=== PATIENT | male | born 1965 | race Caucasian/White ===

== ENCOUNTER 2023-06-05 06:23 | Inpatient (IN) | payer OTHER ==
[2023-06-05] VITALS (10 sets, daily range): BP systolic 147–173; BP diastolic 94–120
[~2023-06-05] VITALS: Ht 182.9 cm; Wt 86.6 kg
[2023-06-05] MEDS ORDERED: METF500 PO (07:01)
[2023-06-05] MEDS ORDERED: Prinivil10 MG PO (07:01)
[2023-06-05] MEDS ORDERED: NOVOLOG FL100 UNIT/3 SC (07:01)
[2023-06-05] MEDS ORDERED: ATOR40TA PO (07:01)
[2023-06-05] MEDS ORDERED: HUMULIN N100 UNIT/1 (07:02)
[2023-06-05 07:03] LABS: BASOPHILS ABSOLUTE AUTO 0.05 K/mm3 (0.00-0.23); BASOPHILS PERCENT AUTO 1 % (0-2); EOSINOPHILS ABSOLUTE AUTO 0.02 K/mm3 (0.00-0.68); EOSINOPHILS PERCENT AUTO 0 % (0-6); Hematocrit 46.5 % (37.0-53.0); IMMATURE GRAN ABSOLUTE AUTO 0.01 K/mm3 (0.00-0.10); IMMATURE GRAN PERCENT AUTO 0 % (0-1); LYMPHOCYTES ABSOLUTE AUTO 1.39 K/mm3 (0.84-5.20); LYMPHOCYTES PERCENT AUTO 23 % (21-46); MONOCYTES ABSOLUTE AUTO 0.32 K/mm3 (0.16-1.47); MONOCYTES PERCENT AUTO 5 % (4-13); Mean Corpuscular HGB 32.2 pg (26.0-34.0); Mean Corpuscular HGB Conc 34.4 g/dL (31.5-36.5); Mean Corpuscular Volume 94 fL (80-100); Mean Platelet Volume 9.1 fL (9.1-12.4); NEUTROPHILS ABSOLUTE AUTO 4.14 K/mm3 (1.96-9.15); NEUTROPHILS PERCENT AUTO 70 % (41-73); Platelet Count 235 K/mm3 (150-400); RDW Coefficient Variation 13.1 % (11.7-14.2); RDW Standard Deviation 44.8 fL (35.1-46.3); Red Blood Cell Count 4.97 M/mm3 (4.30-5.90); White Blood Cell Count 5.93 K/mm3 (4.00-11.30)
[2023-06-05 07:25] LABS: Albumin, Blood 3.8 g/dL (3.4-5.0); Albumin/Globulin Ratio 0.8 (0.8-1.8); Beta-hydroxybutyrate 10.4 mg/dL (0.2-2.8); Bun/Creatinine Ratio 13.6 (12.0-20.0); Calcium, Blood 9.5 mg/dL (8.5-10.1); Creatinine, Blood 0.81 mg/dL (0.60-1.20); Globulin, Blood 4.7 g/dL (2.2-4.0); Potassium, Blood 3.9 mmol/L (3.5-5.5); Total Protein, Blood 8.5 g/dL (6.4-8.2)
[2023-06-05 09:22] LABS: Source, Urine Clean Catch
[2023-06-05 09:27] LABS: Appearance, Urine Clear (Clear); Bilirubin, Urine Neg (Neg); Blood, Urine 2+ (Neg); Color, Urine Yellow (P-Yellow); Glucose Qualitative, Urine 3+ (Neg); Ketones, Urine 4+ (Neg); Leukocyte Esterase, Urine Neg (Neg); Nitrite, Urine Neg (Neg); Protein, Urine 2+ (Neg); Urobilinogen, Urine NORM (Normal); pH, Urine 6.5 (5.0-8.0)
[2023-06-05 09:34] LABS: Amorphous Light (0-Heavy); Bacteria Few /hpf; Mucus Light (0-Heavy); Squamous Epithelial Cells Rare /hpf (Few); White Blood Cells, Urine 0-2 /hpf (0-5)
[2023-06-05] MEDS ORDERED: SALONPAS PATCH1 EACH TOP (14:05)
[2023-06-05] MEDS ORDERED: LOTREXONE1.5 MG PO (14:14)
--- NOTE | 2023-06-05 16:30 | NUR ---
ADMISSION NOTE AND TRANSFER TO ICU: Pt arrived to PCU 10 from ER at 1340. Actively withdrawing from alcohol with CIWA >20. Medicated with librium and ativan per orders. Pt. and brother at bedside. Pt oriented to family and self, follow some directions. Severe hallucinations, tremors, diapheresis and agitiation. Pt was medicated multiple times, as ordered, for active withdrawl. Pt CIWA continued to remain greater than 20. Order for transfer to ICU for better withdrawl management. Pt transfered to ICU 15 via bed. remained at bedside. Report given and care transfered.
--- NOTE | 2023-06-05 18:42 | NUR ---
END OF SHIFT PT BROUGHT TO ICU-15 BY BED FROM PCU @ APPROX 1600. PT ALERT UPON ARRIVAL, NOT ANSWERING Qs OR FOLLOWING INSTRUCTIONS. PT CONFUSED, AGITATED, SWINGING ARMS, & UNABLE TO BE REDIRECTED. SECURITY CALLED FOR ASSISTANCE TO GET PT TRANSFERED FROM PCU BED TO ICU BED. PT EVENTUALLY CRAWLED/SLID SELF FROM PCU BED TO ICU BED W/ STAFF ASSISTANCE. LOCKED TOUGH CUFF WRIST RESTRAINTS PLACED TO BILAT WRISTS D/T PT INTERFERING W/ CARE, PULLING AT TELEMETRY LINES, THRASHING IN BED, & CONFUSEDLY SWINGING ARMS & KICKING LEGS. PT TREMULOUS & DIAPHORETIC. VSS. CBG STABLE. PRECEDEX GTT INITIATED PER ORDERS. PT REPORTING PT NORMALLY DRINKS "12-24 BEERS A DAY, THAT I KNOW OF." PT NORMALLY A&O X4, INDEPENDENT AMBULATION @ BASELINE. PT BEDREST AT THIS TIME. 2L NC APPLIED D/T PT DESAT 88% ON RA WHILE SLEEPING/SNORING. MONITOR SHOWING NSR, HR 60s-80s.
[2023-06-06] VITALS (39 sets, daily range): BP systolic 89–168; BP diastolic 51–138
[2023-06-06 04:24] LABS: BASOPHILS ABSOLUTE AUTO 0.02 K/mm3 (0.00-0.23); BASOPHILS PERCENT AUTO 0 % (0-2); EOSINOPHILS ABSOLUTE AUTO 0.08 K/mm3 (0.00-0.68); EOSINOPHILS PERCENT AUTO 2 % (0-6); Hematocrit 38.5 % (37.0-53.0); Hemoglobin 13.1 g/dL (13.5-17.5); IMMATURE GRAN ABSOLUTE AUTO 0.01 K/mm3 (0.00-0.10); IMMATURE GRAN PERCENT AUTO 0 % (0-1); LYMPHOCYTES ABSOLUTE AUTO 0.85 K/mm3 (0.84-5.20); LYMPHOCYTES PERCENT AUTO 17 % (21-46); MONOCYTES ABSOLUTE AUTO 0.24 K/mm3 (0.16-1.47); MONOCYTES PERCENT AUTO 5 % (4-13); Mean Corpuscular Volume 94 fL (80-100); Mean Platelet Volume 9.6 fL (9.1-12.4); NEUTROPHILS ABSOLUTE AUTO 3.71 K/mm3 (1.96-9.15); NEUTROPHILS PERCENT AUTO 76 % (41-73); Platelet Count 172 K/mm3 (150-400); RDW Standard Deviation 44.6 fL (35.1-46.3); White Blood Cell Count 4.91 K/mm3 (4.00-11.30)
[2023-06-06 04:26] LABS: Bun/Creatinine Ratio 27.5 (12.0-20.0); Calcium, Blood 8.2 mg/dL (8.5-10.1); Creatinine, Blood 0.69 mg/dL (0.60-1.20); Magnesium, Blood 1.8 mg/dL (1.6-2.4); Phosphorus, Blood 2.7 mg/dL (2.5-4.9); Potassium, Blood 3.7 mmol/L (3.5-5.5)
--- NOTE | 2023-06-06 18:21 | NUR ---
SHIFT SUMMARY PATIENT SLEPT OFF AND ON T/O SHIFT. PRECEDEX LOWERED TO 0.8MCG/KG/HR AND NS @ 75ML/HR. CIWA MAX 11 THIS SHIFT. PATIENT IS MORE ALERT AND ORIENTED TO PLACE AND DAY. REDIRECTABLE AND FOLLOWS COMMANDS WITH INTERMITTENT CONFUSION. PATIENT REQUIRED STRAIGHT CATH X 1 TODAY WITH 950ML OUT. NO BM THIS SHIFT. 3LPM VIA NC REMAINS IN PLACE. NOW ABLE TO TAKE PO FLUIDS. NO OTHER CHANGES THIS SHIFT.
[2023-06-07] VITALS (21 sets, daily range): BP systolic 107–171; BP diastolic 69–115
[2023-06-07 04:12] LABS: Bun/Creatinine Ratio 26.4 (12.0-20.0); Calcium, Blood 7.6 mg/dL (8.5-10.1); Creatinine, Blood 0.72 mg/dL (0.60-1.20); Magnesium, Blood 1.8 mg/dL (1.6-2.4); Phosphorus, Blood 2.9 mg/dL (2.5-4.9); Potassium, Blood 3.4 mmol/L (3.5-5.5)
--- NOTE | 2023-06-07 07:42 | NUR ---
CARE OF PT ASSUMED AT 0700. PRECEDEX AT 1MCG FOR ACUTE ETOH W/D. PT SLEEPING, AWAKENS TO LOUD VOICE, PT UNABLE TO ANSWER QUESTIONS; MUMBLES. STRONG COUGH. PT'S AT BEDSIDE; UPDATED. PRECEDEX DECREASED TO 0.7MCG. PLAN; DECREASE SEDATION TOLERATED. MOBILIZE TOLERATED, BLADDER SCAN IF PT UNABLE TO VOID HE HAS BEEN RETAINING URINE, INCREASE PO INTAKE VALENCIA.
--- NOTE | 2023-06-07 08:22 | NUR ---
DR ROBLERO IN TO SEE PT, DR ROBLERO UPDATED PT'S . OKAY TO PLACE INDWELLING OTT CATH IF PT CONTINUES TO HAVE RETENTION ISSUES. PPN TO BE ORDERED BY DR ROBLERO IF PT CONTINUES TO STAY NPO FOR ASPIRATION RISK.
--- NOTE | 2023-06-07 09:23 | NUR ---
PT AWAKE FOR BEDBATH BUT VERY DROWSY, ABLE TO FOLLOW SIMPLE COMMANDS. PT RESTLESS AND PICKING AT LINES. PT UNABLE TO STATE NAME AND ASKED WHERE HE WAS AT.PT HALLUCINATING, ATTEMPTING TO PULL WALLET FROM "JEANS". CIWA 18 FOR MILD AGITATION, TREMORS, CONFUSION, HALLUCINATIONS. ATIVAN 2MG GIVEN. PRECEDEX DECREASED TO 0.5MCG.
[2023-06-07 10:37] LABS: Source, Urine Foley catheter
[2023-06-07 10:42] LABS: Appearance, Urine Hazy (Clear); Bilirubin, Urine Neg (Neg); Blood, Urine 5+ (Neg); Color, Urine Amber (P-Yellow); Glucose Qualitative, Urine 2+ (Neg); Ketones, Urine 4+ (Neg); Leukocyte Esterase, Urine 1+ (Neg); Nitrite, Urine Neg (Neg); Protein, Urine 2+ (Neg); Urobilinogen, Urine 1+ (Normal)
--- NOTE | 2023-06-07 10:48 | NUR ---
PRECEDEX DOWN TO 0.5MCG. PT AWAKENS TO VOICE BUT REMAINS DROWSY FALLING QUICKLY BACK TO SLEEP. BLADDER SCAN SHOWED 814CC. PT ATTEMPTED TO BUT WAS UNABLE TO VOID. ORDERS FOR INDWELLING CATH OBTAINED.URO JET LIDOCAINE USED FOR COMFORT. 16F OTT CATH PLACED W/O DIFFICULTY, PT VALENCIA WELL. APPROX 800CC ORANGE U/O AFTER CATH PLACED. UA SENT PER PROTOCOL.
[2023-06-07 11:44] LABS: Mucus Heavy (0-Heavy); Red Blood Cells, Urine 50-100 /hpf (0-2)
[2023-06-07 11:46] LABS: Squamous Epithelial Cells Not Seen /hpf (Few)
[2023-06-07 11:47] LABS: Bacteria Few /hpf
--- NOTE | 2023-06-07 12:36 | NUR ---
PT WOKE UP AND ASKED TO USE THE BATHROOM FOR BM. 2 PERSON SBA TO COMMODE. PT ONLY ABLE TO PASS GAS. PT MORE ALERT, ABLE TO STATE YEAR W 2 ATTEMPTS. ABLE TO STATE HE WAS IN [facility] AND WHY. PRECEDEX PLACED ON STANDBY. LIBRIUM GIVEN FOR ANXIETY AND MILD TREMORS.
[2023-06-07] MEDS ORDERED: MELO7.5 PO (15:26)
[2023-06-07] MEDS ORDERED: ESCI10 PO (15:26)
--- NOTE | 2023-06-07 16:08 | NUR ---
PT HAS BEEN OFF PRECEDEX SINCE NOON. PT WIDE AWAKE AND ALERT. PT ABLE TO STATE HIS MEDICATIONS AND DOSES. PT REQUESTS HIS ANTIDEPRESSANT TO BE STARTED. PT ALSO STATES THAT HIS NICOTINE WITHDRAW FEELS GREATER THAN HIS ETOH SYMPTOMS AT THE PRESENT. DR ROBLERO CALLED; NICOTINE GUM ADDED WELL CELEXA. DIET ORDERED; PT HAS TOLERATED JELLO. PT NOW SBA ASSIST W WALKER TO TOILET; LOOSE BM'S. CIWA 2 AT PRESENT. PT'S REMAINS AT BEDSIDE.
[2023-06-08] VITALS (10 sets, daily range): BP systolic 144–163; BP diastolic 69–90
--- NOTE | 2023-06-08 00:36 | NUR ---
UPDATE THIS RN ROUNDED ON PT 1950 TO PERFORM INITAL ASSESSMENTS WELL ADMINISTER PM MEDICATION. BED RAILSx3 WERE UP, NON-SLIP SOCKS WERE ON, CALL LIGHT IN REACH, AND BED AT LOWEST POSITION. PT DENIED ANY A NEED TO USE RESTROOM OR ANYTHING ELSE. ALSO THERE IS NO DRAWING IN HAND SCHEDULED FOR THIS SHIFT. ~2046 THIS PM, THIS RN WAS IN ANOTHER ROOM WHEN LOUD CRASH WAS HEARD COMING FROM PT'S ROOM. NURSING STAFF AND REMOTE RUBY ON RAILS DEVELOPER SHASHI KATE TO ROOM TO FIND PT ON THE GROUND BEWTEEN THE TOILET AND BED WITH FECES NOTED ALL OVER GROUND. PT WAS ALERT AND WHEN ASKED WHAT HAPPEND PT STATED "I STARTED SHITTING THE BED AND HAD TO HAUL ASS TO THE TOILET! I FELL AND HIT MY HEAD TO ON THE SIDE OF THE TRASH CAN." FULL HEAD TO TOE ASSESSMENT PERFORMED ON PT WITH NO APPARENT INJURY NOTED. PT DENIED ANY PAIN, DIZZINESS, SOB, HEADACHE, OR UNILATERAL WEAKNESS/SENSATION LOSS. NO ABRASIONS, BLOOD, HEMATOMA, OR WOUNDS NOTED. EYES EQUAL AND REACTIVE TO LIGHT. PT CLEANED UP BY NURSING STAFF AND TRANSFFERED TO BED VIA GAITBELT AND FWW. FULL SET OF VITAL PERFROMED WITH STABLE RESULTS. DR. MUÑOZ NOTIFIED OF EVENT ~2052 WITH ORDERS TO CONTINUE TO MONITOR PT FOR ANY CHANGES IN CONDITION. NURSING SUP. WAS ALSO NOTIFIED ~2049 OF FALL. PT REDUCATED ON NEED TO USE CALL LIGHT WHEN NEEDING TO USE BATHROOM. BED RAILSx3 UP WITH BEDSIDE TABLE INFRONT OF SIDE WITH DOWN RAIL. NON-SLIP SOCKS REMAIN ON, BED IN LOWEST POSITION, CALL LIGHT IN REACH, AND BED ALARM ON. CURTAIN PULLED BACK SO STAFF MAY CLOSER OBSERVE PATIENT. NO NEW ORDERS AT THIS TIME.
[2023-06-08 04:09] LABS: Bun/Creatinine Ratio 12.6 (12.0-20.0); Calcium, Blood 7.7 mg/dL (8.5-10.1); Creatinine, Blood 0.79 mg/dL (0.60-1.20); Phosphorus, Blood 2.9 mg/dL (2.5-4.9); Potassium, Blood 3.5 mmol/L (3.5-5.5)
--- NOTE | 2023-06-08 04:51 | NUR ---
SHIFT SUMMARY A/Ox2-3 AND MOSTLY COOPERATIVE WITH CARE. ANSWERS MOST QUESTIONS APPROPRIATELY AND ABLE TO MAKE HIS NEEDS KNOWN. CONTINUES TO REPORT INTERMITTENT HEADACHES, SYSTEMIC TREMORS, LIGHT INSENSITIVITY, AND INTERMITTENT CONFUSION. CIWAS PERFORMED T/O THE NIGHT RANGING 5-8. ETOH MEDICATIONS GIVEN ORDERED VIA EMAR. CARDIAC, REMAINS IN SR-ST RANGING 90-100'S WITH NO REPORTS OF CP OR PRESSURE T/O THE NIGHT. INTERMITTENT RUN OF BIGEMINY.SBP HAS BEEN ELEVATED RANGING 140-160'S. PRN HYDRALAZINE GIVEN WITH GOOD EFFECT. RESPIRATORY, MAINTAINS SPO2 >95% ON RA WITH NO COMPLAINTS OF SOB OR DYSPNEA. AUDIBLE SNORE NOTED WHEN SLEEPING, BUT DID NOT DESATURATE. GI/, OTT CATH REMAINS PATENT AND DRAINING YELLOW URINE TO GRAVITY. URINE COLOR HAS CLEARED UP SINCE THE START OF THE SHIFT. ONLY THE ONE BM OF LOOSE GREEN STOOL. CONTINUES TO BE VERY WEAK WHEN AMBULATING. 1-2 STAFF ASSIST WITH GAIT BELT/FWW TO TOILET. PT SUFFERED A GLF AT THE START OF THE SHIFT. AWARE, SEE UPDATE NOTE FOR DETAILS. PAIN HAS BEEN WELL CONTROLLED ORDERED VIA EMAR. ABLE TO REPOSITION HIMSELF IN BED. ASSESSED PT FOR RISKS OF ANY IGNITION SOURCES WELL BEHAVIORS FOR INCREASED RISKS OF FIRE DANGER. PT EDUCATED ON COMMON SOURCES OF IGNITION WELL NEED TO KEEP A SAFE ENVIRONMENT. PT VOICED UNDERSTANDING. NO NEW ORDERS AT THIS TIME, WILL REPORT TO ONCOMING RN. MICHELLE RUBIO OF THIS NOTE
--- NOTE | 2023-06-08 13:42 | NUR ---
AM SUMMARY/TRANSFER: PT HAS BEEN A&Ox3-4, ANSWERING QUESTIONS APPROPRIATELY AND COOPERATIVE W/CARE. PT MEDICATED x1 PER CIWA, MAIN C/O TREMORS. PER REPORT, PT SUFFERED FALL LAST NOC WHEN ATTEMPTING TO EXIT BED UNASSISTED. INITIALLY PT HAD NO COMPLAINT AND NO APPARENT INJURY. THIS AM, PT C/O R SIDE CHEST/RIB PAIN. PROVIDER NOTIFIED AND IMAGING ORDERED/COMPLETED AT BEDSIDE. PT DENIES SOB, O2 SATS >93% ON RA. PT DENIES CHEST PAIN/PRESSURE. INDWELLING OTT CATHETER HAS BEEN DC'd WNL, PT TOLERATES WELL. PT IS 2 PERSON ASSIST W/GAIT BELT FOR STAND AND PIVOT TO [facility]. PT ADMISSION STATUS CHANGED TO MEDICAL. PT RECEIVED NEW BED ASSIGNMENT. REPORT GIVEN TO RECEIVING RN, YULIET. PT TRANSFERED W/OUT INCIDENT.
[2023-06-09 02:14] VITALS: BP 156/89
--- NOTE | 2023-06-09 05:35 | NUR ---
SHIFT SUMMARY PT A&O X4 BUT BECOMES CONFUSED AT TIMES OF HIS SURROUNDINGS. PT TRYING TO GET OOB T/O SHIFT. AT BEDSIDE. FOLLOWED CIWA PROTOCOL--MEDICATED PER EMAR. NS @75 ML/HR INFUISING. 2 PERSON ASSIST TO BSC. PT IS CONFIDENTIAL. BED KEPT AT THE LOWEST POSITION WITH BED ALARM IN PLACE. WILL CONTINUE TO MONITOR UNTIL SHIFT END.
[2023-06-09 05:53] LABS: Bun/Creatinine Ratio 7.6 (12.0-20.0); Creatinine, Blood 0.66 mg/dL (0.60-1.20); Magnesium, Blood 2.2 mg/dL (1.6-2.4); Potassium, Blood 3.2 mmol/L (3.5-5.5)
[2023-06-09 07:17] VITALS: BP 156/97
--- NOTE | 2023-06-09 17:19 | NUR ---
PT ARRIVED TO [facility] AT 1715 VIA BED. FAMILY IS AT BEDSIDE. CALL LIGHT IS IN REACH AND BED ALARM IN PLACE. PT INSTRUCTED TO USE CALL IF HE HAS ANY NEEDS. AOX3 AT THIS TIME WILL CONTINUE TO MONITOR.
--- NOTE | 2023-06-09 17:48 | NUR ---
SHIFT SUMMARY: PT TRANSFERRED TO ROOM 350 D/T IMPULSIVENESS AND HALLUCINATIONS. PT PLEASANT AND MOSTLY COOPERATIVE. PT STILL REFUSING TO USE BEDPAN OR BSC. INSISTS ON USING TOILET AND IS ANNOYED WHEN STAFF ATTEMPTS TO EXPLAIN WHY IT IS UNSAFE. PT STILL C/O PAIN ON R.SIDE ABD. MEDICATED PER EMAR. CALL LIGHT IN REACH. REPORT GIVEN TO EDDIE DE PAZ.
[2023-06-09 19:32] VITALS: BP 157/92
[2023-06-10 04:56] VITALS: BP 135/104
--- NOTE | 2023-06-10 06:16 | NUR ---
SHIFT SUMMARY PT A&OX4, PLEASANT AND COOPERATIVE. HYPERTENSIVE, HR 95-100, AFEBRILE, O2 99% ON RA. C/O BACK PAIN. CIWA SCORE 8, MANAGED WITH ATIVAN PER EMAR. TOLERATING AN ADA DIET. VOIDING IN BR X1 ASSIST WITH FWW TO BR. X1 MEDIUM BM PER PT'S REPORT. BED ALARM SET FOR PT'S SAFETY. FIRE SAFETY CHECKS COMPLETED.
[2023-06-10 06:26] VITALS: BP 158/99
[2023-06-10 07:16] LABS: Anion Gap 9 mmol/L (6-16); Blood Urea Nitrogen 7 mg/dL (8-24); Bun/Creatinine Ratio 10.7 (12.0-20.0); CO2, Blood 21 mmol/L (21-32); Calcium, Blood 8.3 mg/dL (8.5-10.1); Chloride, Blood 106 mmol/L (98-108); Creatinine, Blood 0.66 mg/dL (0.60-1.20); Glomerular Filtration Rate 109 (60-); Glucose, Blood 228 mg/dL (70-99); Phosphorus, Blood 2.4 mg/dL (2.5-4.9); Potassium, Blood 3.7 mmol/L (3.5-5.5); Sodium, Blood 136 mmol/L (136-145)
[2023-06-10 07:22] VITALS: BP 138/90
[2023-06-10] MEDS ORDERED: INSULANI SC (10:03)
[2023-06-10] MEDS ORDERED: Glucophage 850850 MG PO (10:05)
[2023-06-10] MEDS ORDERED: Naltrexone HCl50 MG PO (10:06)
[2023-06-10] MEDS ORDERED: NICO21TP TOP (13:21)
[2023-06-10] MEDS ORDERED: Ativan1 MG PO (13:22)
--- NOTE | 2023-06-10 15:29 | NUR ---
DISCHARGE INSTRUCTIONS COMPLETED AND DISCUSSED WITH PT AND BROTHER EXPRESSING UNDERSTANDING. [facility] [address] VIA W/C. BROTHER CHRISTINE WAS HANDED A SCRIPT FOR ATIVAN BY DR. MAYFIELD.
== END 2023-06-10 14:46 | disposition home or self-care (01) | DRG 897 ==
LOC: ER 06:23 → PCU 11:17 → MEDS 11:17 → PCU 11:17 → ICUE 16:11 → MEDS 06-08 13:41 → ENPENDDIS 06-10 12:08 → MEDS 06-10 14:46
PROVIDERS: Student in an Organized Health Care Education/Training Program; ADMIT Internal Medicine
PROC: HZ2ZZZZ Detoxification Services for Substance Abuse Treatment (ICD-10-PCS; principal; 2023-06-05)
PROC: 0T9B70Z Drainage of Bladder with Drainage Device, Via Natural or Artificial Opening (ICD-10-PCS; 2023-06-05)
DX: F10.151 Alcohol abuse with alcohol-induced psychotic disorder with hallucinations (principal); E87.6 Hypokalemia; R33.9 Retention of urine, unspecified; F17.210 Nicotine dependence, cigarettes, uncomplicated; E83.39 Other disorders of phosphorus metabolism; I10 Essential (primary) hypertension; F32.A Depression, unspecified; E10.9 Type 1 diabetes mellitus without complications; Z98.890 Other specified postprocedural states; Z91.013 Allergy to seafood; Z79.4 Long term (current) use of insulin; Z79.899 Other long term (current) drug therapy; Z79.84 Long term (current) use of oral hypoglycemic drugs
CPT/HCPCS: 36415; 51701; 51702; 71045; 71046; 80048; 80053; 80069; 81001; 82010; 82947; 83605; 83735; 84100; 85025; 87086; 94760; 96361; 96374; 96375; 96376; 97110; 97116; 97162; 97530; 99285-25; A9270; C1751; J0360; J1815; J2060; J2560; J3411; J3480; J7030; J7050; J7060

== ENCOUNTER → 2023-06-28 | Outpatient (CLI) | payer OTHER ==
[~2023-06-28] MED LIST: ATOR40TA PO; Ativan1 MG PO; ESCI10 PO; Glucophage 850850 MG PO; HUMULIN N100 UNIT/1; INSULANI SC; LOTREXONE1.5 MG PO; MELO7.5 PO; METF500 PO; NICO21TP TOP; NOVOLOG FL100 UNIT/3 SC; Naltrexone HCl50 MG PO; Prinivil10 MG PO; SALONPAS PATCH1 EACH TOP
== END ==
LOC: LAB SHORT 08:01 → LAB 08:01
DX: S81.802A Unspecified open wound, left lower leg, initial encounter (principal)
CPT/HCPCS: 87070; 87075; 87077; 87147; 87186; 87205